=== PATIENT | female | born 1975 | race Caucasian/White ===

== ENCOUNTER → 2022-05-10 13:10 | Outpatient (CLI) | payer OTHER, SELFPAY ==
--- NOTE | ~2022-05-10 | US_ITS ---
EXAMINATION: US pelvic complete DATE: 05/10/2022 13:37 INDICATION: Uterine hypertrophy Comparison:No prior studies for comparison. TECHNIQUE: Multiple transabdominal and endovaginal sonographic images of the pelvis performed. FINDINGS: The uterus measures 10.3 x 5.4 x 6.2 cm. The endometrial complex measures 1.8 cm. There are multiple uterine fibroids, largest measuring 2.5 x 2.3 x 1.8 cm. There are nabothian cysts. The right ovary measures 3.2 x 1.9 x 2 cm and the left ovary measures 2.4 x 2.4 x 1.8 cm. There are small follicles in each ovary. Normal doppler signal in both ovaries. There is no free fluid in the pelvis. There are no abnormal masses seen on either side. IMPRESSION: 1. Enlarged uterus with multiple fibroids, largest measuring up to 2.5 cm. 2: Endometrial thickening measuring 1.8 cm. Reviewed, dictated and finalized at location A. EY MECHANIC
== END ==
PROVIDERS: PCP Nurse Practitioner; Visit Provider Nurse Practitioner
DX: N85.2 Hypertrophy of uterus (principal); D25.9 Leiomyoma of uterus, unspecified
CPT/HCPCS: 76856

== ENCOUNTER 2024-08-21 12:37 | Outpatient (CLI) | payer OTHER, SELFPAY | END 2024-08-21 12:38 | disposition home or self-care (01) | LOC: GOSHIMG 12:38 | PROVIDERS: PCP Nurse Practitioner; Visit Provider Nurse Practitioner | DX: D25.9 Leiomyoma of uterus, unspecified (principal) | CPT/HCPCS: 76830; 76856 ==

== ENCOUNTER 2024-10-05 01:09 | Day surgery (SDC) | payer OTHER, SELFPAY ==
--- NOTE | 2024-09-09 16:59 | PC.NURSE ---
Addendum entered by Master Saunders RN 09/24/24 16:02: Patient says no changes to health history since preop interview. Informed to be here at 1115 on 10-05-2024 for surgery at 115pm. Reviewed all preop instructions below with patient. Original Note: Report to the Outpatient Waiting Room, entrance under the green pavilion located off [facility], at time __1130am____ on date ___[phone]____. Planned Procedure Time: __1330pm .? Time changes happen often and if your time is changed the preop area will call you the afternoon before. - You and your visitor will be asked to self-screen and do not enter if you have any COVID symptoms. Please call surgeon if you need to reschedule. - A mask is optional within the hospital at this time. Patients may have clear liquids (water, carbonated beverages, clear teas, apple juice) until 3 hours prior to surgery with a maximum of 20 ounces. STOP AT 1130AM - No food from midnight until time of surgery and no smoking, or chewing tobacco (or any form of nicotine). No chewing gum, candy or mints. Take only the following medications with a SIP of water on the morning of surgery: LEXAPRO, PROGESTERONE DO NOT STOP ANY OF YOUR OTHER PRESCRIPTION MEDICATIONS PRIOR TO SURGERY EXCEPT THE FOLLOWING Hold all vitamins and supplements for 3 days per anesthesiologist. -(TAKES VIT. D X ONCE WEEKLY ON THURSDAYS.) _ Please no make-up, nail brazilian, hairspray, perfume, deodorant, or body powder the day of surgery.? No jewelry (including any body piercings) or valuables the day of surgery, leave them at home.? Please take a shower or bath the night before, or the morning of, surgery with an antibacterial soap.? Wear comfortable, loose fitting clothing.? - Jewelry must be removed prior to entering the operating room.? Rings and piercings that are not removed may be cut off. - The hospital will not accept responsibility for valuables.? - Please leave all valuables, including medications, at home the day of surgery. If you are going home after surgery, a licensed recycle driver must drive you home.? - NO public transportation without another adult if you receive anesthesia. - We recommend that an adult stay with you for 24 hours following discharge. - We also recommend that you do not drive, make important decision, drink alcoholic beverages, or take any drugs that were not prescribed by your health care provider for at least 24 hours after your discharge time. Follow any additional instructions given to you from your surgeon. Telephone instructions given to ____REGINA/PATIENT and asked if any additional questions and then verbalized understanding. Patient advised to call surgeon office or pre surgery nurse liaison [phone] if any additional questions.
[2024-09-09 17:07] VITALS: BMI 27.3
--- OUTSIDE RECORDS SUMMARY | 2024-09-21 02:11 | XMS_ITS | Referral Summary ---
Author Organization [facility] Address [address] [place] [id number] Care Team Providers Care Truck Unloader Name Role Phone Facundo Iniguez MD Primary Care Provider + Milly Cotto MD Unavailable [phone] Encounters Date Type Department Care Team Description 07/31/2024 9:44 AM TELEGRAPHIC INSTRUMENT SUPERVISOR - 07/31/2024 11:59 PM TELEGRAPHIC INSTRUMENT SUPERVISOR Hospital Encounter [facility] [address] [place] [address] Screening mammogram, encounter for Discharge Disposition: Discharge to home or self care from Last 3 Months Allergies No known active allergies Medications venlafaxine XR (EFFEXOR-XR) 75 mg 24 hr capsule 1 03/31/2018 Ac tive ergocalciferol (VITAMIN D) 50,000 unit capsule TK 1 C PO ONCE A WEEK WITH A LARGE MEAL 1 03/28/2018 Active Active Problems Problem Noted Date Diagnosed Date Other neutropenia 04/10/2018 Thrombocytopenia 04/10/2018 Social History Tobacco Use Types Packs/Day Years Used Date Smoking Tobacco: Never Smokeless Tobacco: Never Alcohol Use Standard Drinks/Week Comments Yes 3 (1 standard drink = 0.6 oz pur e alcohol) Comments Unknown Sex and Gender Information Value Date Recorded Sex Assigned at Not on file Legal Sex Female 12:01 PM TELEGRAPHIC INSTRUMENT SUPERVISOR Gender Identity Not on file Sexual Orientation Not on file Last Filed Vital Signs Vital Sign Reading Time Taken Comments Blood Pressure 144/84 04/14/2018 2:39 PM CDT Pulse 93 04/14/2018 2:39 PM CDT Temperature 36.9 C (98.4 F) 04/14/2018 2:39 PM CDT Respiratory Rate - - Oxygen Saturation 97% 04/14/2018 2:39 PM CDT Inhaled Oxygen Concentration - - Weight 87.2 kg (192 lb 3.2 oz) 04/14/2018 2:39 P M CDT Height 175.3 cm (5' 9 ) 04/14/2018 2:39 PM CDT Body Mass Index 28.38 04/14/2018 2:39 PM CDT Plan of Treatment Not on file Procedures Procedure Name Priority Date/Time Associated Diagnosis Comments SCREENING MAMMOGRAM BILATERAL W VANNA Schedule Routine, Read Routine (OP Routine) 07/31/2024 10:02 AM TELEGRAPHIC INSTRUMENT SUPERVISOR Screening mammogram, encounter for from Last 3 Months Results * Screening Mammogram Bilateral W Vanna (07/31/2024 10:02 AM TELEGRAPHIC INSTRUMENT SUPERVISOR) Anatomical Region Laterality Modality Breast Bilateral Mammography Narrative 08/03/2024 3:46 PM TELEGRAPHIC INSTRUMENT SUPERVISOR Mammogram Technique: Bilateral Digital Breast Tomosynthesis, Bilateral C-view 2D Screening mammogram. Views obtained: bilateral craniocaudal and bilateral mediolateral oblique. Computer Aided Detection was performed. Mammogram Findings: The present examination has been compared to prior imaging studies performed at [facility] on 07/11/2022, at [facility] on 03/13/2023, and at [facility] on 07/25/2023. The breasts are heterogeneously dense, which may obscure small masses. There is no suspicious abnormality in either breast. Impression: There is no mammographic evidence of malignancy. Annual screening mammography is recommended. If supplemental screening is desired, breast MRI would be recommended in this patient with heterogeneously dense breasts. OVERALL FINAL ASSESSMENT: BI-RADS CATEGORY 1: Negative. Procedure Note Nahomy Up MD - 08/03/2024 Mammogram Technique: Bilateral Digital Breast Tomosynthesis, Bilateral C-view 2D Screening mammogram. Views obtained: bilateral craniocaudal and bilateral mediolateral oblique. Computer Aided Detection was performed. Mammogram Findings: The present examination has been compared to prior imaging studies performed at [facility] on 07/11/2022, at [facility] on 03/13/2023, and at [facility] 07/25/2023. The breasts are heterogeneously dense, which may obscure small masses. There is no suspicious abnormality in either breast. Impression: There is no mammographic evidence of malignancy. Annual screening mammography is recommended. If supplemental screeningis desired, breast MRI would be recommended in this patient with heterogeneously dense breasts. OVERALL FINAL ASSESSMENT: BI-RADS CATEGORY 1: Negative. us Self Screening Mammogram IMG MAMMO PROCEDURES Fi nal Result from Last 3 Months Insurance [employer] [facility] [employer] Communications OPEN ACCESS AETNA [employer] PPO AETNA [employer]LINK [facility] HEALTHLINK OPEN ACCESS [facility] [id number] Care Teams Truck Unloader Relationship Specialty [place] [address] [place] [address] PCP - General Family Medicine 06/02/24 Milly Cotto MD [address] [address] PCP - cone runner Gynecology 07/22/24
--- OUTSIDE RECORDS SUMMARY | 2024-09-21 02:11 | XMS_ITS | Encounter Summary ---
Author Organization [facility] Healthcare Address [address] [place] [address] Care Team Providers Care Food Beverage Supervisor Name Role Phone Jarod Mendes MD Primary Care Provider [phone] Facundo Iniguez MD Primary Care Provider + Milly Cotto MD Unavailable [phone] Encounter Details Date Type Department Care Team (Late st Contact Info) Description 06/07/2020 Telephone [facility] [address] [place] [address] [address] [place] [address] Vilma Mejias, RT Social History Tobacco Use Types Packs/Day Years Used Date Smoking Tobacco: Never Smokeless Tobacco: Never Alcohol Use Standard Drinks/Week Comments Yes 3 (1 standard drink = 0.6 oz pur e alcohol) Comments Unknown Sex and Gender Information Value Date Recorded Sex Assigned at Not on file Legal Sex Female 12:01 PM CORNER BLOCK CUTTER Gender Identity Not on file Sexual Orientation Not on file documented as of this encounter Plan of Treatment Not on file documented as of this encounter Visit Diagnoses Not on filedocumented in this encounter Care Teams Food Beverage Supervisor Relationship Specialty [place] [address] [address] [id number] PCP - General 06/23/17 06/01/24 [place] [address] [place] [address] PCP - General Family Medicine 06/02/24 Milly Cotto MD [address] [address] PCP - teacher adult education Gynecology 07/22/24 documented as of this encounter
--- OUTSIDE RECORDS SUMMARY | 2024-09-21 02:11 | XMS_ITS | Encounter Summary ---
Author Organization [facility] Address [address] [place] [address] Care Team Providers Care Press Operator Carbon Products Name Role Phone Facundo Iniguez MD Primary Care Provider [phone] Encounter Details Date Type Department Care Team (Late st Contact Info) Description 04/20/2022 [employer]ange Message Enc [facility] Medical Group Family & Internal Medicine [facility] [address] [place] [address] [place] [address] [place] [address] Hormone blood work Social History Tobacco Use Types Packs/Day Years Used Date Smoking Tobacco: Never Smokeless Tobacco: Never Alcohol Use Standard Drinks/Week Comments Yes 1.7 (1 standard drink = 0.6 oz p ure alcohol) Occasional PHQ-2 Answer Date Recorded PHQ-2 Score - If the patient scores above 3, please move on to questions 3-9 2 08/10/2021 Comments No Sex and Gender Information Value Date Recorded Sex Assigned at Not on file Legal Sex Female 11:19 PM CDT Gender Identity Not on file Sexual Orientation Not on file documented as of this encounter Plan of Treatment Not on file documented as of this encounter Visit Diagnoses Not on filedocumented in this encounter Additional Health Concerns Assessment Noted Time PHQ-9 Depression Total Score: 2 08/10/19 22 7:25 AM SAIL LAY OUT WORKER documented as of this encounter Care Teams Press Operator Carbon Products Relationship Specialty Start [place] [address] [place] [address] PCP - General FAMILY PRACTICE 02/13/21 documented as of this encounter
--- OUTSIDE RECORDS SUMMARY | 2024-09-21 02:11 | XMS_ITS | Clinical Summary ---
Author Organization [facility] Address [address] [place] [address] Care Team Providers Care Service Unit Operator Oil Well Name Role Phone Facundo Iniguez MD Primary Care Provider + Milly Cotto MD Unavailable [phone] Allergies No known active allergies Medications venlafaxine XR (EFFEXOR-XR) 75 mg 24 hr capsule 1 03/31/2018 Ac tive ergocalciferol (VITAMIN D) 50,000 unit capsule TK 1 C PO ONCE A WEEK WITH A LARGE MEAL 1 03/28/2018 Active Active Problems Problem Noted Date Diagnosed Date Other neutropenia 04/10/2018 Thrombocytopenia 04/10/2018 Encounters Date Type Department Care Team Description 07/31/2024 9:44 AM LAB INSTRUCTOR - 07/31/2024 11:59 PM [facility] Hospital Encounter [address] [address] Screening mammogram, encounter for Discharge Disposition: Discharge to home or self care from Last 3 Months Surgical History Surgery Date Site/Laterality Comments BREAST BIOPSY Medical History Medical History Date Comments Leukopenia Family History Medical History Relation Name Comments COPD Father Breast cancer Mother Adenocarcinoma of breast - (Added by TW Conv) Relation Name Status Comments Father (Age 65) Mother (Age 72) 70 when di agnosed Social History Tobacco Use Types Packs/Day Years Used Date Smoking Tobacco: Never Smokeless Tobacco: Never Alcohol Use Standard Drinks/Week Comments Yes 3 (1 standard drink = 0.6 oz pur e alcohol) Comments Unknown Sex and Gender Information Value Date Recorded Sex Assigned at Not on file Legal Sex Female 12:01 PM LAB INSTRUCTOR Gender Identity Not on file Sexual Orientation Not on file Obstetrics History Last Filed Vital Signs Vital Sign Reading [...] 04/14/2018 2:39 PM CDT Plan of Treatment Health Maintenance Due Date Last Done Comments Cervical Cancer Screening 1977 Colon Cancer Screening-Colonoscopy 1977 Depression Screening 1977 Hepatitis C Screening 1977 Hepatitis B Screening 1995 Regular Well Visit/Exam 18-64 1995 Pneumococcal vaccine <65 (1 of 2 - PCV) 1996 Zoster Vaccine (1 of 2) 1996 Influenza Vaccine (#1) 2024 Breast Cancer Screening-Mammogram 07/31/2025 07/31/2024, 07/25/2023, 07/11/2022, Additional history exists DTaP/Tdap/Td Vaccine (2 - Td or Tdap) 12/26/2026 12/26/2016 Procedures Procedure Name Priority Date/Time Associated Diagnosis Comments SCREENING MAMMOGRAM BILATERAL W VANNA Schedule Routine, Read Routine (OP Routine) 07/31/2024 10:02 AM LAB INSTRUCTOR Screening mammogram, encounter for from Last 3 Months Results * Screening Mammogram Bilateral W Vanna (07/31/2024 10:02 AM LAB INSTRUCTOR) Anatomical Region Laterality Modality Breast Bilateral Mammography Narrative 08/03/2024 3:46 PM LAB INSTRUCTOR Mammogram Technique: Bilateral Digital Breast Tomosynthesis, Bilateral C-view 2D Screening mammogram. Views obtained: bilateral craniocaudal and bilateral mediolateral oblique. Computer Aided Detection was performed. Mammogram Findings: The present examination has been compared to prior imaging studies performed at [facility] on 07/11/2022, at [facility] on 03/13/2023, and at [facility] on 07/25/2023. The breasts are heterogeneously dense, [...] compared to prior imaging studies performed at [facility] on 07/11/2022, at [facility] on 03/13/2023, and [facility]. The breasts are heterogeneously dense, which [...] nal Result from Last 3 Months Insurance [employer] [facility] HEALTHLINK OPEN ACCESS AETNA COV[place] PPO AETNA [employer] [facility] HEALTHLINK OPEN ACCESS [facility] [id number] Care Teams Service Unit Operator Oil Well Relationship Specialty [place] [address] [place] [address] PCP - General Family Medicine 06/02/24 Milly Cotto MD [address] [address] PCP - value stream leader Gynecology 07/22/24
--- OUTSIDE RECORDS SUMMARY | 2024-09-21 02:11 | XMS_ITS | Clinical Summary ---
Author Organization [facility] Address [address] [place] [address] Care Team Providers Care Obstetrics And Gynecology Professor Name Role Phone Facundo Iniguez MD Primary Care Provider [phone] Allergies No known active allergies Medications vitamin D3, cholecalciferol, 1000 UNIT Tab tablet Take 1 tablet by mouth daily. Active escitalopram (LEXAPRO) 10 MG tablet Take 1 tablet (10 mg total) by mouth daily. 07/23/2023 Active Active Problems No known active problems Encounters Date Type Department Care Team Description 07/31/2024 Scan [facility] SRVCS Scanned, Doc Med Group Mammogram (SCAN) from Last 3 Months Immunizations Name Administration Dates Next Due Fluzone High Dose - >Age 65 (Prefilled Syringe) 02/14/2021(Deferred: Patient Refused) Family History Medical History Relation Comments COPD Father Heart Attack Father Hypertension Father Anxiety Mother Depression?/Anxi ety Cancer Mother Breast Diabetes Mother Pre-Diabetes Hypertension Mother Relation Status Comments Father Mother Social History Tobacco Use Types Packs/Day Years Used Date Smoking Tobacco: Never Smokeless Tobacco: Never Tobacco Cessation:Counseling Given: No Alcohol Use Standard Drinks/Week Comments Yes 1.7 [...] Sign Reading Time Taken Comments Blood Pressure 126/77 08/13/2023 12:40 PM STABLE MANAGER Pulse 93 08/13/2023 12:40 PM STABLE MANAGER Temperature 37.3 C (99.1 F) 08/13/2023 12:40 PM STABLE MANAGER Respiratory Rate 16 08/13/2023 12:40 PM STABLE MANAGER Oxygen Saturation 98% 08/13/2023 12:40 PM STABLE MANAGER Inhaled Oxygen Concentration - - Weight 97.5 kg (215 lb) 08/13/2023 12:40 PM STABLE MANAGER Height 175.3 cm (5' 9 ) 08/13/2023 12:40 PM STABLE MANAGER Body Mass Index 31.75 08/13/2023 12:40 PM STABLE MANAGER Plan of Treatment Health Maintenance Due Date Last Done Comments Cervical Cancer Screening Pap Smear (Age 30 to 64) Every 3 Years 1977 Colorectal Cancer Screening Colonoscopy (10 Years) 1977 Hepatitis C 1995 DTaP, Tdap and Td Vaccines (1 - Tdap) 1996 Hepatitis B Vaccines (1 of 3 - 19+ 3-dose series) 1996 Cervical Cancer Screening Pap with HPV Testing (Age 30 to 64) Every 5 Years 2007 Cervical Cancer Screening with HPV 2007 COVID-19 Vaccine ( season) 2024 PHQ-2 (Physician [place]) 06/24/2024 Annual Physical 08/13/2024 08/13/2023, 02/14/2021 Mammogram Screening 07/31/2026 07/31/2024, 07/11/2022, 06/05/2018, Additional history exists Meningococcal B Vaccine Aged Out No l onger eligible based on patient's age to complete this topic Meningococcal Vaccine Aged Out No graciela gina eligible based on patient's age to complete this topic Pneumococcal Vaccine: Pediatrics (0 to 5 Years) and At-Risk Patients (6 to 64 Years) Aged Out No longer eligible based on patient's age to complete this topic RSV Immunizations Under 20 Months Aged Out No longer eligible based on patient's age to complete this topic Procedures Procedure Name Priority Date/Time Associated Diagnosis Comments MAMMOGRAM GENERIC (SCAN ORDER) 07/31/2024 from Last 3 Months Results * MAMMOGRAM GENERIC (SCAN ORDER) (07/31/2024) Anatomical Region Laterality Modality Other 07/31/2024 us Doc Med Group Scanned SCANNING Final Resu lt from Last 3 Months Insurance [employer] OPEN ACCESS [facility] Care Teams Obstetrics And Gynecology Professor Relationship Specialty Start [place] [address] [place] [address] PCP - General FAMILY PRACTICE 02/13/21
--- OUTSIDE RECORDS SUMMARY | 2024-09-21 02:11 | XMS_ITS | Encounter Summary ---
Author Organization [facility] Address [address] [place] [address] Care Team Providers Care Ob Nurse Name Role Phone Facundo Iniguez MD Primary Care Provider [phone] Encounter Details Date Type Department Care Team (Late st Contact Info) Description 08/15/2021 [employer] Message Enc [facility] Medical Group Family & Internal Medicine [facility] [address] [place] [address] [place] [address] [place] [address] Buspirone Social History Tobacco Use Types Packs/Day Years [...] on file Sexual Orientation Not on file COVID-19 Exposure Response Date Recorded In the last 10 days, have yo u been in contact with someone who was confirmed or suspected to have Coronavirus/COVID-19? No / Unsure 08/10/2021 7:18 AM EMBEDDED SYSTEMS SOFTWARE ENGINEER documented as of this encounter Plan of Treatment Not on file documented as of this encounter Visit Diagnoses Not on filedocumented in this encounter Additional Health Concerns Assessment Noted Time PHQ-9 Depression Total Score: 2 08/10/19 22 7:25 AM EMBEDDED SYSTEMS SOFTWARE ENGINEER documented as of this encounter Care Teams Ob Nurse Relationship Specialty [place] [address] [place] [address] PCP - General FAMILY PRACTICE 02/13/21 documented as of this encounter
--- OUTSIDE RECORDS SUMMARY | 2024-09-21 02:11 | XMS_ITS | Encounter Summary ---
Author Organization [facility] Address [address] [place] [address] Care Team Providers Care Community Relations Manager Name Role Phone Facundo Iniguez MD Primary Care Provider [phone] Encounter Details Date Type Department Care Team (Late st Contact Info) Description 01/12/2022 [employer] Message Enc [facility] Medical Group Family & Internal Medicine [facility] [address] [place] [address] [place] [address] [place] [address] Sore throat from covid Social History Tobacco Use Types Packs/Day Years [...] suspected to have Coronavirus/COVID-19? No / Unsure 01/13/2022 1:17 PM CDT documented as of this encounter Plan of Treatment Not on file documented as of this encounter Visit Diagnoses Not on filedocumented in this encounter Additional Health Concerns Assessment Noted Time PHQ-9 Depression Total Score: 2 08/10/19 22 7:25 AM SUPERVISOR CONCRETE STONE FINISHING documented as of this encounter Care Teams Community Relations Manager Relationship Specialty [place] [address] [place] [address] PCP - General FAMILY PRACTICE 02/13/21 documented as of this encounter
--- OUTSIDE RECORDS SUMMARY | 2024-10-05 01:12 | XMS_ITS | Encounter Summary ---
Author Organization [facility] Address [address] [place] [address] Care Team Providers Care Dishcloth Folder Name Role Phone Facundo Iniguez MD Primary Care Provider [phone] Encounter Details Date Type Department Care Team (Late st Contact Info) Description 01/12/2022 [employer] Message Enc [facility] Medical Group Family & Internal Medicine [facility] [address] [place] [address] [place] [address] [place] [address] Sore throat from covid Social [...] PM CDT documented as of this encounter Functional Status * Calculated C-SSRS Risk Score (Lifetime/Recent) Answer Date of Assessment Author Status No Risk Indicated 01/13/2022 1:26 PM CDT Esthela Jane RN Active * [place] Suicide Severity Rating Scale (Screener/Recent Self-Report) Question Answer Date of Assessment Author Status 1. Wish to be (Past 1 Month) No 01/13/2022 1:26 PM Esthela Prado RN Activ e 2. Non-Specific Active Suicidal Thoughts (Past 1 Month) No 01/13/2022 1:26 PM Esthela Prado RN Activ e 6. Suicidal Behavior (Lifetime) No 01/13/2022 1:26 PM Esthela Prado RN Activ e documented as of this encounter Plan of Treatment Not on file documented as of this encounter Visit Diagnoses Not on filedocumented in this encounter Additional Health Concerns Assessment Noted Time PHQ-9 Depression Total Score: 2 08/10/19 22 7:25 AM DAIRY EQUIPMENT REPAIRER documented as of this encounter Care Teams Dishcloth Folder Relationship Specialty Start [place] [address] [place] [address] PCP - General FAMILY PRACTICE 02/13/21 documented as of this encounter
--- OUTSIDE RECORDS SUMMARY | 2024-10-05 01:12 | XMS_ITS | Clinical Summary ---
Author Organization [facility] Address [address] [place] [address] Care Team Providers Care Casino Worker Name Role Phone Facundo Iniguez MD Primary Care Provider + Milly Cotto MD Unavailable [phone] Allergies No known active allergies Medications venlafaxine XR (EFFEXOR-XR) 75 mg 24 hr capsule 1 03/31/2018 Ac tive ergocalciferol (VITAMIN D) 50,000 unit capsule TK 1 C PO ONCE A WEEK WITH A LARGE MEAL 1 03/28/2018 Active Active Problems Problem Noted Date Diagnosed Date Other neutropenia 04/10/2018 Thrombocytopenia 04/10/2018 Encounters Date Type Department Care Team Description 07/31/2024 9:44 AM LOGISTICS CLERK - 07/31/2024 11:59 PM [facility] Hospital Encounter [address] [address] Screening mammogram, encounter for Discharge [...] on file Legal Sex Female 12:01 PM LOGISTICS CLERK Gender Identity Not on file Sexual Orientation [...] Read Routine (OP Routine) 07/31/2024 10:02 AM LOGISTICS CLERK Screening mammogram, encounter for from Last 3 Months Results * Screening Mammogram Bilateral W Vanna (07/31/2024 10:02 AM LOGISTICS CLERK) Anatomical Region Laterality Modality Breast Bilateral Mammography Narrative 08/03/2024 3:46 PM LOGISTICS CLERK Mammogram Technique: Bilateral Digital Breast Tomosynthesis, Bilateral C-view 2D Screening mammogram. Views obtained: bilateral craniocaudal and bilateral mediolateral oblique. Computer Aided Detection was performed. Mammogram Findings: The present examination has been compared to prior imaging studies performed at [facility] on 07/11/2022, at [facility] on 03/13/2023, and at [facility] on 07/25/2023. The breasts are heterogeneously [...] compared to prior imaging studies performed at [facility] on 07/11/2022, at [facility] on 03/13/2023, and [facility]. The breasts are heterogeneously dense, which [...] nal Result from Last 3 Months Insurance [employer] [facility] HEALTHLINK OPEN ACCESS AETNA COV[place] PPO AETNA [id number] [place] [facility] HEALTHLINK OPEN ACCESS [facility] [id number] Care Teams Casino Worker Relationship Specialty [place] [address] [place] [address] PCP - General Family Medicine 06/02/24 Milly Cotto MD [address] [address] PCP - provider relations consultant Gynecology 07/22/24
--- OUTSIDE RECORDS SUMMARY | 2024-10-05 01:12 | XMS_ITS | Encounter Summary ---
Author Organization [facility] Address [address] [place] [address] Care Team Providers Care Computer Hardware Designer Name Role Phone Facundo Iniguez MD Primary Care Provider [phone] Encounter Details Date Type Department Care Team (Late st Contact Info) Description 08/15/2021 Invrep Message Enc [facility] Medical Group Family & Internal Medicine [facility] [address] [place] [address] [place] [address] [place] [address] Buspirone Social History Tobacco Use [...] Coronavirus/COVID-19? No / Unsure 08/10/2021 7:18 AM EDUCATION AND DEVELOPMENT MANAGER documented as of this encounter Plan of Treatment Not on file documented as of this encounter Visit Diagnoses Not on filedocumented in this encounter Additional Health Concerns Assessment Noted Time PHQ-9 Depression Total Score: 2 08/10/19 22 7:25 AM EDUCATION AND DEVELOPMENT MANAGER documented as of this encounter Care Teams Computer Hardware Designer Relationship Specialty [place] [address] [place] [address] PCP - General FAMILY PRACTICE 02/13/21 documented as of this encounter
--- OUTSIDE RECORDS SUMMARY | 2024-10-05 01:12 | XMS_ITS | Encounter Summary ---
Author Organization [facility] Address [address] [place] [address] Care Team Providers Care Switch Repairer Name Role Phone Jarod eMndes MD Primary Care Provider [phone] Facundo Iniguez MD Primary Care Provider + Milly Cotto MD Unavailable Encounter Details Date Type Department Care Team (Late st Contact Info) Description 06/07/2020 Telephone [facility] [address] [place] [address] [address] [place] [address] Vilma Mejias, RT Social History Tobacco Use Types Packs/Day Years Used Date Smoking Tobacco: Never Smokeless Tobacco: Never Alcohol Use Standard Drinks/Week Comments Yes 3 (1 standard drink = 0.6 oz pur e alcohol) Comments Unknown Sex and Gender Information Value Date Recorded Sex Assigned at Not on file Legal Sex Female 12:01 PM OFFICE MACHINE EMBOSSOGRAPH OPERATOR Gender Identity Not on file Sexual Orientation Not on file documented as of this encounter Plan of Treatment Not on file documented as of this encounter Visit Diagnoses Not on filedocumented in this encounter Care Teams Switch Repairer Relationship Specialty [place] [address] [id number] PCP - General 06/23/17 06/01/24 [place] [address] [place] [address] PCP - General Family Medicine 06/02/24 Milly Cotto MD [address] [address] PCP - intensive care anaesthetist Gynecology 07/22/24 documented as of this encounter
--- OUTSIDE RECORDS SUMMARY | 2024-10-05 01:12 | XMS_ITS | Encounter Summary ---
Author Organization [facility] Address [address] [place] [address] Care Team Providers Care Parking Attendant Name Role Phone Facundo Iniguez MD Primary Care Provider [phone] Encounter Details Date Type Department Care Team (Late st Contact Info) Description 04/20/2022 IvyDate Message Enc [facility] Medical Group Family & Internal Medicine [facility] [address] [place] [address] [place] [address] [place] [address] Hormone blood work Social History [...] Total Score: 2 08/10/19 22 7:25 AM INTERVENTIONIST documented as of this encounter Care Teams Parking Attendant Relationship Specialty [place] [address] [place] [address] PCP - General FAMILY PRACTICE 02/13/21 documented as of this encounter
--- OUTSIDE RECORDS SUMMARY | 2024-10-05 01:12 | XMS_ITS | Referral Summary ---
Author Organization [facility] Address [address] [place] [phone] Care Team Providers Care Data Compiler Name Role Phone Facundo Iniguez MD Primary Care Provider + Milly Cotto MD Unavailable [phone] Encounters Date Type Department Care Team Description 07/31/2024 9:44 AM METAL BONDING ASSEMBLER - 07/31/2024 11:59 PM METAL BONDING ASSEMBLER Hospital Encounter [facility] [address] [facility] [address] [place] [address] Screening mammogram, encounter for Discharge Disposition: Discharge [...] on file Legal Sex Female 12:01 PM METAL BONDING ASSEMBLER Gender Identity Not on file Sexual Orientation [...] Read Routine (OP Routine) 07/31/2024 10:02 AM METAL BONDING ASSEMBLER Screening mammogram, encounter for from Last 3 Months Results * Screening Mammogram Bilateral W Vanna (07/31/2024 10:02 AM METAL BONDING ASSEMBLER) Anatomical Region Laterality Modality Breast Bilateral Mammography Narrative 08/03/2024 3:46 PM METAL BONDING ASSEMBLER Mammogram Technique: Bilateral Digital Breast Tomosynthesis, Bilateral C-view 2D Screening mammogram. Views obtained: bilateral craniocaudal and bilateral mediolateral oblique. Computer Aided Detection was performed. Mammogram Findings: The present examination has been compared to prior imaging studies performed at [facility] on 07/11/2022, at [facility] on 03/13/2023, and at [facility] on 07/25/2023. The breasts are heterogeneously [...] compared to prior imaging studies performed at [facility] on 07/11/2022, at [facility] on 03/13/2023, and at [facility] at [facility] 07/25/2023. The breasts are heterogeneously dense, which [...] nal Result from Last 3 Months Insurance [employer] [facility] [employer] OPEN ACCESS AETNA OfficeDropY PPO AETNA [employer] Free All [employer] [facility] HEALTHLINK OPEN ACCESS [facility] [id number] Care Teams Data Compiler Relationship Specialty [place] [address] [place] [address] PCP - General Family Medicine 06/02/24 Milly Cotto MD [address] [address] PCP - sports medicine masseur Gynecology 07/22/24
--- OUTSIDE RECORDS SUMMARY | 2024-10-05 01:12 | XMS_ITS | Clinical Summary ---
Author Organization [facility] Address [address] [place] [address] Care Team Providers Care Over Hauler Helper Name Role Phone Facundo Iniguez MD Primary Care Provider [phone] Allergies No known active allergies Medications vitamin [...] Mammogram (SCAN) from Last 3 Months Immunizations Immunization Administration Dates Next Due Fluzone High Dose [...] Comments Blood Pressure 126/77 08/13/2023 12:40 PM E COMMERCE MARKETING MANAGER Pulse 93 08/13/2023 12:40 PM E COMMERCE MARKETING MANAGER Temperature 37.3 C (99.1 F) 08/13/2023 12:40 PM E COMMERCE MARKETING MANAGER Respiratory Rate 16 08/13/2023 12:40 PM E COMMERCE MARKETING MANAGER Oxygen Saturation 98% 08/13/2023 12:40 PM E COMMERCE MARKETING MANAGER Inhaled Oxygen Concentration - - Weight 97.5 kg (215 lb) 08/13/2023 12:40 PM E COMMERCE MARKETING MANAGER Height 175.3 cm (5' 9 ) 08/13/2023 12:40 PM E COMMERCE MARKETING MANAGER Body Mass Index 31.75 08/13/2023 12:40 PM E COMMERCE MARKETING MANAGER Plan of Treatment Health Maintenance Due [...] COVID-19 Vaccine ( season) 2024 PHQ-2 (Physician [place]) 06/24/2024 Annual Physical 08/13/2024 08/13/2023, 02/14/2021 Mammogram Screening 07/31/2026 07/31/2024, 07/11/2022, 06/05/2018, Additional history exists Meningococcal B Vaccine Aged Out No l onger eligible based on patient's age to complete this topic Meningococcal Vaccine Aged Out No graciela gina eligible based on patient's age to complete this topic Pneumococcal Vaccine: Pediatrics (0 to 5 Years) and At-Risk Patients (6 to 49 Years) Aged Out No longer eligible based [...] Resu lt from Last 3 Months Insurance [place] OPEN ACCESS [facility] Care Teams Over Hauler Helper Relationship Specialty [place] [address] [place] [address] PCP - General FAMILY PRACTICE 02/13/21
--- NOTE | 2024-10-05 07:36 | WPDHPUPDATE1 ---
History and Physical Update Update Date/Time: 10/05/24 07:36 History and Physical has been reviewed, including an updated exam of the patient. There are NO changes in the patient's condition. Risks, benefits, and alternatives have been discussed and questions answered. Patient agrees to proceed with procedure.
--- NOTE | 2024-10-05 07:36 | PM.HPGS ---
History of Present Illness History of Present Illness Consent: Risks, benefits, and alternatives have been discussed and questions answered. Patient agrees to proceed with procedure. Chief complaint: menorrhagia Narrative: Yissel Dorantes is a 49 year old female with heavy cycles. Cycles remain monthly and lasts for approximately 3 days but they have quite heavy changing protection every 1hour. The patient went to a nurse practitioner and a separate clinic and was given progesterone. It was recommended to proceed with a workup as to why the change in her cycles occurred. Pelvic ultrasound did show fibroids. In addition, the patient was slightly anemic. It was recommended to undergo D&C hysteroscopy for further evaluation. Risks of infection, bleeding, perforation, and fluid imbalance were reviewed. Possible pathology was also discussed. Patient voices understanding and agrees to proceed. Review of Systems Review of Systems: not repeated day of surgery; patient states no changes in status PMFSH Past Medical History Medical History (Updated 10/05/24 @ 07:40 by Milly Cotto MD) History of thrombocytopenia Diagnosis 2005 with last Depression with anxiety (normal spontaneous vaginal delivery) X2 Surgical History Surgical History (Updated 10/05/24 @ 07:39 by Milly Cotto MD) History of breast biopsy 2009 fibroadenoma Social History Social History Smoking status: Never smoker Second hand tobacco smoke exposure: No Alcohol intake: never Substance use: never Substance use type: does not use Living arrangements: with family Spiritual care concerns: No Meds Home Medications and Allergies Home Medications ?Medication ?Instructions ?Recorded ?Confirmed ?Type ergocalciferol (vitamin D2) 1,250 50,000 unit PO WEEKLY 09/09/24 09/24/24 History mcg (50,000 unit) capsule escitalopram oxalate 10 mg tablet 10 mg PO DAILY 09/09/24 09/09/24 History progesterone micronized 100 mg 100 mg PO QPM 09/09/24 09/09/24 History capsule Allergies Allergy/AdvReac Type Severity Reaction Status Date / Time No Known Allergies Allergy Unknown Verified 09/24/24 15:56 Exam Const: General: healthy appearing and alert Orientation/consciousness: patient oriented x3 Resp: Effort & Inspection: normal respiratory effort GI: GI Palp: Yes Soft to palpation, No Tenderness to palpation present (GI) and No Palpable mass present : External Female Exam: normal external appearance Speculum Exam - Vagina: normal appearance of the vagina and normal vaginal discharge Speculum Exam - Cervix: normal appearance of the cervix Bimanual exam- vagina & uterus: uterine size normal and consistency normal Bimanual Exam- Adnexa, other: normal adnexae and No adnexal tenderness Neuro: General: patient oriented x3 Assessment and Plan Assessment and plan (1) Menorrhagia: Code(s): N92.0 - Excessive and frequent menstruation with regular cycle Status: Acute Assessment and Plan: Plan to proceed with D&C hysteroscopy
[2024-10-05 08:30] VITALS: BP 137/72; PULSE 82; RESP 16; TEMP 36.8; O2SAT 99; BMI 27.7
[2024-10-05] MEDS: ACETAMINOPHEN 500 MG TABLET 1000 MG PO (08:40)
[2024-10-05 08:42] LABS: BEDSIDEPREGUCG Negative (Negative)
--- NOTE | 2024-10-05 08:59 | P.PNAN_ITS ---
Anes - Initial Pre Proc Eval Procedure: Operation Date: 10/05/24 10:15 Proposed Procedures p Hysteroscopy Dilation and Curettage - Milly Cotto MD Date/Time: 10/05/24 08:59 Surgeon: Milly Cotto MD Pre Op Diagnosis: menorrhagia Patient Data Age: 49 Gender: F Height: 1.75 m Weight: 85.3 kg Last Vital Signs Temp 36.8 C 10/05/24 08:30 Pulse 82 10/05/24 08:30 Resp 16 10/05/24 08:30 BP 137/72 10/05/24 08:30 Pulse Ox 99 10/05/24 08:30 O2 Del Method Room Air 10/05/24 08:30 Allergies Allergy/AdvReac Type Severity Reaction Status Date / Time No Known Allergies Allergy Unknown Verified 10/05/24 08:36 Home Medications ?Medication ?Instructions ?Recorded ?Confirmed ?Type ergocalciferol (vitamin D2) 1,250 50,000 unit PO WEEKLY 09/09/24 10/05/24 History mcg (50,000 unit) capsule escitalopram oxalate 10 mg tablet 10 mg PO DAILY 09/09/24 10/05/24 History progesterone micronized 100 mg 100 mg PO QPM 09/09/24 10/05/24 History capsule Laboratory Tests 10/05/24 08:30 POC Urine HCG, Qual Negative (Negative) Patient hx anesthesia problems: none Family hx anesthesia problems: none Results Review: All pre-operative results and documents have been reviewed as part of the pre- operative evaluation. [facility] Past Medical History Medical History History of thrombocytopenia Diagnosis 2005 with last Depression with anxiety (normal spontaneous vaginal delivery) X2 Surgical History Surgical History History of breast biopsy 2009 fibroadenoma Social History Social History Smoking status: Never smoker Second hand tobacco smoke exposure: No Alcohol intake: never Substance use: never Substance use type: does not use Living arrangements: with family Spiritual care concerns: No Anes - Eval Final PreProcedure Day of Procedure 10/05/24 08:59 Patient weight: overweight Heart: regular rate and rhythm Lungs: clear to auscultation Airway: Mallampati scale class II Neurological: alert and oriented Last oral intake: >/= 8 hours ASA classification: II Emergent: no Anesthetic plan: proceed Anesthesia type and monitoring: general GIVS and standard monitoring Results Review: All pre-operative results and documents have been reviewed as part of the pre- operative evaluation. Informed Consent: The patient's anesthetic plan and its attendant risks and benefits were discussed with the patient/family/POA. Questions were solicited and answers provided to the satisfaction of the patient/family/POA.
[2024-10-05] MEDS: LACTATED RINGERS 1,000 ML 30 ML IV CONT (09:51)
--- NOTE | 2024-10-05 10:22 | P.OP_ITS ---
Procedure Note - Detailed Date of Procedure 10/05/24 Pre-op Diagnosis menorrhagia Post-op Diagnosis Same Procedure Performed D&C hysteroscopy Surgeon Milly Cotto MD Anesthesia MAC Findings Uterus sounds to 10cm and appears grossly secretory. No discrete lesions. No visible fibroids. Description of Procedure The patient is taken to the operating room and placed under anesthesia in the dorsal lithotomy position. She was prepped and draped usual sterile fashion. Noonan speculum was placed in the vagina and the cervix grasped on the anterior lip with a tenaculum. The uterus is sounded to 10cm. The diagnostic hysteroscope was placed and with no specific abnormalities noted it is removed. The sharp curette is used to curette the endometrium until a good uterine cry was noted in all areas. All instruments are removed. Sponge, needle, and in strument counts are correct per the OR staff. The patient was awakened from anesthesia and taken to recovery in stable condition. Estimated Blood Loss 5 Drains No Packing No Pathology Yes (Endometrial curettings) Complications No immediate complications Condition Stable Disposition PACU
[2024-10-05 10:23] VITALS: BP 110/60; PULSE 66; RESP 12; O2SAT 99
[2024-10-05 10:50] VITALS: BP 120/70; PULSE 57; RESP 18; O2SAT 99
[2024-10-05 11:10] VITALS: BP 117/68; PULSE 60; RESP 18
== END 2024-10-05 11:18 | disposition home or self-care (01) ==
PROVIDERS: PCP Nurse Practitioner; Visit Provider Obstetrics & Gynecology Gynecology
PROC: 0U5B8ZZ Destruction of Endometrium, Via Natural or Artificial Opening Endoscopic (ICD-10-PCS; CPT 58563; principal; 2024-10-05 10:15)
DX: N92.0 Excessive and frequent menstruation with regular cycle (principal)
CPT/HCPCS: 58558; 88305; A9270; J1100; J2003; J2250; J2405; J2704; J3010; J7120